=== PATIENT | male | born 1965 | race Caucasian/White ===

== ENCOUNTER 2017-06-02 13:55 | Emergency (ER) | payer OTHER ==
[2017-06-02] MEDS ORDERED: CLINDAMYCIN 150 MG CAP PO ONE (14:13)
--- NOTE | 2017-06-02 14:19 | Emergency Department Record ---
History of Present Illness - General Chief complaint: Dental Stated complaint: DENTAL PAIN Time Seen by Provider: 06/02/17 14:01 Source: Patient Mode of Arrival: Ambulatory - History of Present Illness Initial comments: The patient is here due to persistent R lower jaw pain for 11 days. He had his R lower 2nd molar removed 11 days ago and has had pain since. He still is not able to open his mouth fully without pain. The patient is now out of his Abx's and thinks he needs more. There is no real pain unless he is opening his mouth. MD complaint: Tooth pain Onset/Timin -: Days(s) Severity scale (1-10): 2 Consistency: Intermittent Improves with: None Worsens with: None Context- Dental: Other - Related Data Previous Rx's Medication Instructions Recorded Clindamycin HCl [Cleocin HCl] 300 mg PO QID #28 capsule 06/02/17 Naproxen [Naprosyn] 500 mg PO BID #14 tablet. 06/02/17 Allergies Allergy/AdvReac Type Severity Reaction Status Date / Time No Known Allergies Allergy none Verified 06/02/17 14:13 Travel Screening - Travel/Exposure Within Last 30 Days Have you traveled within the last 30 days?: No - Travel/Exposure Within Last Year Have you traveled outside the [place] in the last year?: No - Additonal Travel Details Have you been exposed to anyone with a communicable illness?: No - Travel Symptoms Symptom Screening: None Review of Systems Constitutional: Denies: Chills, Fever Eyes: Denies: Eye discharge Past Medical History - SOCIAL HISTORY Smoking Status: Current every day smoker Alcohol Use: Rare Drug Use: None - RESPIRATORY Hx Respiratory Disorders: No - CARDIOVASCULAR Hx Cardio Disorders: No - NEURO Hx Neuro Disorders: No - GI Hx GI Disorders: No - Hx Genitourinary Disorders: No - ENDOCRINE Hx Endocrine Disorders: No - MUSCULOSKELETAL Hx Musculoskeletal Disorders: No - PSYCH Hx Psych Problems: No - HEMATOLOGY/ONCOLOGY Hx Hematology/Oncology Disorders: No Family Medical History Any Significant Family History?: No Physical Exam - General General Appearance: Alert, Oriented x3, Cooperative, No acute distress - Head Head exam: Atraumatic, Normocephalic, Normal inspection - Eye Eye exam: Normal appearance, PERRL - ENT Teeth exam: Dental tenderness # (31 gum area.), Gingival enlargement (mildly at the surgical site. There is tenderness to palpation present.). negative: Normal inspection Throat exam: Normal inspection. negative: Tonsillar erythema, Tonsillomegaly, Tonsillar exudate - Neck Neck exam: Normal inspection, Full ROM. negative: Lymphadenopathy, Meningismus , Tenderness - Respiratory Respiratory exam: Normal lung sounds bilaterally. negative: Respiratory distress Course Vital Signs 06/02/17 14:00 Temperature 99.0 F Pulse Rate 81 Respiratory 18 Rate Blood Pressure 151/91 Pulse Ox 98 - Reevaluation(s) Reevaluation #1: I did explain to the patient that he will need to see his Dentist early next week. He is to take the Clindamycin and Naprosyn as directed. 06/02/17 14:17 Disposition Disposition: Discharge Clinical Impression: Pain, dental Disposition: Home, Self-Care Condition: (2) Stable Instructions: Toothache (ED) Additional Instructions: Please take the Clindamycin and Naprosyn as directed. Please see your Dentist for further evaluation as planned. Prescriptions: Clindamycin HCl [Cleocin HCl] 300 mg PO QID #28 capsule Naproxen [Naprosyn] 500 mg PO BID #14 tablet.dr Forms: Patient Portal Access Time of Disposition: 14:19 Quality - Quality Measures Quality Measures: N/A - Blood Pressure Screening View Details: Yes Does Patient Have Any of the Following: No Blood Pressure Classification: Hypertensive Reading Systolic Measurement: 151 Diastolic Measurement: 91 Screening for High Blood Pressure: < First Hypertensive BP, F/U Documented > [ [id number]] First Hypertensive Follow-up Interventions: Referral to alternative/primary care provider.
== END 2017-06-02 14:34 | disposition home or self-care (01) ==
LOC: ER 13:55
DX: K08.89 Other specified disorders of teeth and supporting structures (principal); R68.84 Jaw pain; F17.210 Nicotine dependence, cigarettes, uncomplicated
CPT/HCPCS: 99282

== ENCOUNTER 2018-10-31 08:23 | Day surgery (SDC) | payer OTHER ==
[2018-10-31] MEDS ORDERED: PROPOFOL 10 MG/ML VIAL IV ONE (08:24)
[2018-10-31] MEDS ORDERED: MIDAZOLAM HCL 2MG/2ML VIAL IV ONE (08:24)
[2018-10-31] MEDS ORDERED: LIDOCAINE 2% MDV (20MG/ML) 20ML VIAL IV ONE (08:24)
--- NOTE | 2018-11-01 15:41 | Operative Note ---
OPERATION: COLONOSCOPY with cold snare polypectomy x8 and hemoclip placement x1. PREOPERATIVE DIAGNOSIS: Colon cancer screening, average risk, initial exam. POSTOPERATIVE DIAGNOSES: 1. Cecal polyp. 2. Rectosigmoid colon polyps. PREPARATION QUALITY: Good. ESTIMATED BLOOD LOSS: Minimum. SPECIMENS: Cecal polyp and rectosigmoid polyps. COMPLICATIONS: None apparent. PROCEDURE: After informed consent was obtained from the patient, he was placed in the left lateral decubitus position in the endoscopy suite, sedated and monitored by the department of anesthesia. Digital rectal exam was unremarkable. A well-lubricated CF160 colonoscope was inserted into the rectum and advanced to the cecum. Preparation quality was good. The cecum revealed a sessile polyp approximately 9 mm in diameter removed with a cold snare. A hemoclip was applied to the site for wound closure purposes. The polyp was retrieved. The remainder of the cecum, ascending colon, transverse colon, and descending colon were unremarkable. There were 7 diminutive rectosigmoid colon polyps which had hyperplastic appearance. Nonetheless, they were removed with a cold snare. Minimal bleeding was noted and the polyps were retrieved. J-turn views of the anorectum and forward views of the rectum were otherwise unremarkable. The endoscope was straightened, the rectal ampulla deflated, and the endoscope was removed. RECOMMENDATIONS: I suggest the patient resume his medications and diet. He will require repeat exam in 3-5 years pending tissue histology. As always, thank you for allowing me to participate in the healthcare of your patients. SIMEON
== END 2018-10-31 10:06 | disposition home or self-care (01) ==
LOC: HOP 08:23
PROVIDERS: ATTEND Internal Medicine Gastroenterology
DX: Z12.11 Encounter for screening for malignant neoplasm of colon (principal); D12.0 Benign neoplasm of cecum; K63.5 Polyp of colon; E78.00 Pure hypercholesterolemia, unspecified